=== PATIENT | male | born 1980 | race Caucasian/White ===

== ENCOUNTER 2025-06-12 11:04 | Emergency (ER) | payer OTHER ==
[~2025-06-12] VITALS: Ht 177.8 cm; Wt 84.0 kg
[2025-06-12 11:12] VITALS: O2SAT 99
[2025-06-12 11:52] LABS: BASOPHILS % 0.3 % (0.0-2.0); EOSINOPHILS % 0.3 % (0.0-5.0); HEMATOCRIT. 46.6 % (42.0-52.0); HEMOGLOBIN. 15.4 g/dL (14.0-18.0); LYMPHOCYTES % 7.2 % (20.0-50.0); MEAN PLATELET VOLUME 8.9 fl (7.4-10.4); MONOCYTES % 3.7 % (2.0-8.0); NEUTROPHILS % 88.5 % (40.0-76.0); PLATELET 313 x1000/uL (130-400); RED BLOOD CELL COUNT 5.49 mill/uL (4.7-6.1); RED CELL DISTRIBUTION WIDTH 13.9 % (11.6-14.6)
[2025-06-12] MEDS: ONDANSETRON 4MG ODT PO ONE (11:52)
[2025-06-12] MEDS: KETOROLAC 30MG/ML VIAL IM ONE (11:53)
[2025-06-12] MEDS: MORPHINE SULFATE 4 MG/ML INJ (FOR IV/IM USE) IV ONE (11:53)
[2025-06-12] MEDS: SODIUM CHLORIDE 0.9% 1,000 ML IV ONE (11:54)
[2025-06-12] MEDS: ONDANSETRON HCL 4MG/2ML INJ IV ONE (11:59)
[2025-06-12 12:03] VITALS: TEMP 37.1
[2025-06-12 12:05] LABS: CREATININE 1.3 mg/dL (0.6-1.3)
[2025-06-12 12:06] LABS: UREA NITROGEN BLOOD 10 mg/dL (9-23)
[2025-06-12 12:07] LABS: ASPARTATE AMINOTRANSFERASE 19 IU/L (<34)
[2025-06-12 12:08] LABS: BILIRUBIN DIRECT 0.2 mg/dL (<=3.0); BILIRUBIN TOTAL 0.9 mg/dL (0.1-1.0); PROTEIN TOTAL 6.9 g/dL (6.0-8.3)
[2025-06-12 14:03] LABS: CLARITY URINE CLEAR (CLEAR); COLOR URINE YELLOW (YELLOW); GLUCOSE URINE NEGATIVE (NEGATIVE); KETONES URINE 1+ (NEGATIVE); LEUKOCYTE ESTERASE URINE NEGATIVE (NEGATIVE); NITRITE URINE NEGATIVE (NEGATIVE); OCCULT BLOOD URINE 1+ (NEGATIVE); PH URINE >=9.0 (4.5-8.0); PROTEIN URINE 1+ (NEGATIVE); SPECIFIC GRAVITY URINE 1.021 (1.005-1.030); UROBILINOGEN URINE 0.2 E.U./dL (0.2-1.0)
[2025-06-12 14:39] VITALS: BP 111/74; PULSE 64; RESP 16; O2SAT 100
[2025-06-12 15:10] LABS: RBC URINE 25-50 /hpf (0-2)
[2025-06-12 15:11] LABS: BACTERIA URINE TRACE
[2025-06-12 15:15] LABS: SQUAMOUS EPITHELIAL CELL URINE 1+ /lpf (RARE/1+)
== END 2025-06-12 14:41 | disposition home or self-care (01) ==
LOC: ER 11:43
DX: R10.9 Unspecified abdominal pain (principal); R11.2 Nausea with vomiting, unspecified
CPT/HCPCS: 99285; 74176; 96374; 96361; 96375; 80076; 80048; 81003; 83690; 85025; 36415; 96372; J1885; Q0162; J2405; J2270; J7030

== ENCOUNTER 2025-06-23 19:20 | Emergency (ER) | payer OTHER ==
[~2025-06-23] VITALS: Ht 177.8 cm; Wt 80.0 kg
[2025-06-23 19:30] VITALS: O2SAT 99
[2025-06-23] MEDS: KETOROLAC 15MG/ML VIAL IM ONE (21:51)
[2025-06-23 22:04] LABS: BASOPHILS % 0.9 % (0.0-2.0); EOSINOPHILS % 2.7 % (0.0-5.0); HEMATOCRIT. 45.1 % (42.0-52.0); HEMOGLOBIN. 15.0 g/dL (14.0-18.0); LYMPHOCYTES % 26.9 % (20.0-50.0); MEAN PLATELET VOLUME 8.8 fl (7.4-10.4); MONOCYTES % 7.9 % (2.0-8.0); NEUTROPHILS % 61.6 % (40.0-76.0); PLATELET 331 x1000/uL (130-400); RED BLOOD CELL COUNT 5.27 mill/uL (4.7-6.1); RED CELL DISTRIBUTION WIDTH 14.0 % (11.6-14.6)
[2025-06-23 22:21] LABS: CREATININE 1.1 mg/dL (0.6-1.3); UREA NITROGEN BLOOD 14 mg/dL (9-23)
[2025-06-23 22:23] LABS: ASPARTATE AMINOTRANSFERASE 14 IU/L (<34); BILIRUBIN DIRECT < 0.1 mg/dL (<=3.0)
[2025-06-23 22:24] LABS: BILIRUBIN TOTAL 0.4 mg/dL (0.1-1.0); PROTEIN TOTAL 6.9 g/dL (6.0-8.3)
[2025-06-23 23:52] LABS: CLARITY URINE CLEAR (CLEAR); COLOR URINE YELLOW (YELLOW); GLUCOSE URINE NEGATIVE (NEGATIVE); KETONES URINE NEGATIVE (NEGATIVE); LEUKOCYTE ESTERASE URINE NEGATIVE (NEGATIVE); NITRITE URINE NEGATIVE (NEGATIVE); OCCULT BLOOD URINE 3+ (NEGATIVE); PH URINE 5.5 (4.5-8.0); PROTEIN URINE NEGATIVE (NEGATIVE); SPECIFIC GRAVITY URINE 1.016 (1.005-1.030); UROBILINOGEN URINE 0.2 E.U./dL (0.2-1.0)
[2025-06-24] MEDS ORDERED: ACET-2708 MT (00:09)
[2025-06-24] MEDS ORDERED: NAPR-1176 MT (00:09)
[2025-06-24] MEDS ORDERED: LIDO-53 TP (00:09)
[2025-06-24] MEDS ORDERED: TAMS-54 MT (00:31)
[2025-06-24 00:33] VITALS: BP 133/94; PULSE 84; RESP 17; TEMP 37; O2SAT 100
[2025-06-24 02:35] LABS: WBC URINE 0-2 /hpf (0-2)
[2025-06-24 02:36] LABS: BACTERIA URINE NONE SEEN; SQUAMOUS EPITHELIAL CELL URINE FEW /lpf (RARE/1+)
== END 2025-06-24 00:51 | disposition home or self-care (01) ==
LOC: ER 19:30
DX: N13.2 Hydronephrosis with renal and ureteral calculous obstruction (principal); Z79.1 Long term (current) use of non-steroidal anti-inflammatories (NSAID); Z79.899 Other long term (current) drug therapy
CPT/HCPCS: 99285; 74176; 80076; 80048; 81003; 83690; 85025; 36415; 96372; J1885